=== PATIENT | female | born 1995 | race Caucasian/White ===

== ENCOUNTER 2021-09-13 08:14 | Inpatient (IN) | payer OTHER ==
[~2021-09-13] VITALS: Ht 167.6 cm; Wt 95.9 kg
[~2021-09-13 08:14] MED LIST: ATARAX50 MG PO
[2021-09-17] VITALS (13 sets, daily range): BP systolic 100–135; BP diastolic 58–86; PULSE 75–107; TEMP 97.8–98
[2021-09-17 13:24] LABS: BASO # 0.1 K/mm3 (0.0-0.2); BASO % 0.7 % (0.0-2.0); EOS # 0.4 K/mm3 (0.0-0.7); EOS % 3.8 % (0.0-4.0); GRAN # 7.6 K/mm3 (1.4-6.5); GRAN % 72.8 % (42.2-75.2); HEMATOCRIT 38.5 % (37.0-47.0); LYMPH # 1.5 K/mm3 (1.2-3.4); LYMPH % 14.4 % (20.0-51.0); MEAN CELL VOLUME 85 fl (80.0-100.0); MEAN CORPUSCULAR HEMOGLOBIN 29 pg (27-31); MEAN CORPUSCULAR HGB CONC 34 g/dl (33.0-37.0); MEAN PLATELET VOLUME 10.7 fl (7.4-10.4); MONO # 0.8 K/mm3 (0.1-0.6); MONO % 7.6 % (1.7-9.3); PLATELET COUNT 243 K/mm3 (130-400); RED BLOOD COUNT 4.51 M/mm3 (4.10-5.30); REDCELL DISTRIBUTION WIDTH-CV 14.4 % (11.5-14.5)
[2021-09-17] MEDS ORDERED: PRENATAL MULTIV1 KIT PO (16:59)
[2021-09-18] VITALS (52 sets, daily range): BP systolic 90–144; BP diastolic 52–99; PULSE 67–116; TEMP 97.7–98.4
[2021-09-19] MEDS ORDERED: IBU600 MG PO (06:54)
[2021-09-19 08:45] VITALS: BP 117/73; PULSE 96; TEMP 98.1
[2021-09-19 17:00] VITALS: BP 119/85; PULSE 85; TEMP 98.4
[2021-09-19 19:30] VITALS: BP 109/63; PULSE 87; TEMP 98.6
[2021-09-20 03:44] VITALS: BP 112/65; PULSE 86; TEMP 98.6
[2021-09-20 08:36] VITALS: BP 119/78; PULSE 84; TEMP 97.5
== END 2021-09-20 14:55 | disposition home or self-care (01) | DRG 807 ==
LOC: LDR 09-17 08:13 → OB 09-17 12:15 → LDR 09-17 12:15 → OB 09-18 15:15
PROVIDERS: ADMIT Obstetrics & Gynecology
PROC: 10E0XZZ Delivery of Products of Conception, External Approach (ICD-10-PCS; principal; 2021-09-17)
PROC: 0KQM0ZZ Repair Perineum Muscle, Open Approach (ICD-10-PCS; 2021-09-17)
PROC: 10907ZC Drainage of Amniotic Fluid, Therapeutic from Products of Conception, Via Natural or Artificial Opening (ICD-10-PCS; 2021-09-17)
PROC: 3E0P7VZ Introduction of Hormone into Female Reproductive, Via Natural or Artificial Opening (ICD-10-PCS; 2021-09-17)
PROC: 3E033VJ Introduction of Other Hormone into Peripheral Vein, Percutaneous Approach (ICD-10-PCS; 2021-09-17)
PROC: 0UQMXZZ Repair Vulva, External Approach (ICD-10-PCS; 2021-09-17)
DX: O48.0 Post-term pregnancy (principal); Z37.0 Single live birth; O77.0 Labor and delivery complicated by meconium in amniotic fluid; O34.13 Maternal care for benign tumor of corpus uteri, third trimester; D25.9 Leiomyoma of uterus, unspecified; O70.1 Second degree perineal laceration during delivery; Z3A.42 42 weeks gestation of pregnancy
CPT/HCPCS: J1200; J2590; J7120